=== PATIENT | male | born 2005 | race Two or more races ===

== ENCOUNTER 2024-03-18 23:31 | Emergency (ER) | payer MEDICAID ==
[~2024-03-18] VITALS: Ht 195.6 cm; Wt 151.3 kg
[2024-03-18] MEDS: ALPRAZolam 0.5 MG TAB PO ONE (23:45)
--- NOTE | 2024-03-18 23:48 | ED.PDOC ---
HPI Comments 18-year-old male who came to ER for palpitations. Patient denies any medical problems. He admits to have been smoking marijuana earlier today, and shortly afterwards he started having palpitations. Denies any acute chest pains or shortness of breath. Patient appears very anxious at this time of care. Patient was tachycardic at arrival. Chief Complaint: Palpitations Time Seen by MD: 23:47 Primary Care Provider: ASHLEY Brown Notes: Nurses Notes Allergies: Coded Allergies: NO KNOWN ALLERGIES (Unverified , 08/16/12) Information Source: Patient Mode of Arrival: Ambulatory Severity: Moderate Timing: Minutes Duration: Since onset History of: None Associated Signs and Symptoms: Palpitations Past Medical History PAST MEDICAL HISTORY: Denies Surgical History: Denies all surgeries Family History Family History: Reviewed,noncontributory to illness Social History Smoker: Non-Smoker Alcohol: Denies ETOH Use Drugs: Marijuana Lives In: Home Constitutional: denies: chills, diaphoresis, fatigue, fever, malaise, sweats, weakness, others EENTM: denies: blurred vision, double vision, ear bleeding, ear discharge, ear drainage, ear pain, ear ringing, eye pain, eye redness, hearing loss, mouth pain, mouth swelling, nasal discharge, nose bleeding, nose congestion, nose pain, photophobia, tearing, throat pain, throat swelling, voice changes, others Respiratory: denies: cough, hemoptysis, orthopnea, SOB at rest, shortness of breath, SOB with excertion, stridor, wheezing, others Cardiovascular: reports: dizzy spells, palpitations; denies: chest pain, diaphoresis, Dyspnea on exertion, edema, irregular heart beat, left arm pain, lightheadedness, PND, syncope, others Gastrointestinal: denies: abdomen distended, abdominal pain, blood streaked bowels, constipated, diarrhea, dysphagia, difficulty swallowing, hematemesis, melena, nausea, poor appetite, poor fluid intake, rectal bleeding, rectal pain, vomiting, others Genitourinary: denies: burning, dysuria, flank pain, frequency, hematuria, incontinence, penile discharge, penile sore, pain, testicle pain, testicle swelling, urgency, others Neurological: denies: dizziness, fainting, headache, left sided numbness, left sided weakness, numbness, paresthesia, pre-existing deficit, right sided numbness, right sided weakness, seizure, speech problems, tingling, tremors, weakness, others Musculoskeletal: denies: back pain, gout, joint pain, joint swelling, muscle pain, muscle stiffness, neck pain, others Integumetry: denies: bruises, change in color, change in hair/nails, dryness, laceration, lesions, lumps, rash, wounds, others Allergic/Immunocompromised: denies: Difficulty Healing, Frequent Infections, Hives, Itching, others Hematologic/Lymphatic: denies: anemia, blood clots, easy bleeding, easy bruising, swollen glands, others Endocrine: denies: excessive hunger, excessive sweating, excessive thirst, excessive urination, flushing, intolerance to cold, intolerance to heat, unexplained weight gain, unexplained weight loss, others Psychiatric: denies: anxiety, bipolar disorder, depression, hopeless, panic disorder, schizophrenia, sleepless, suicidal, others Physical Exam General Appearance: Mild Distress (Patient was anxious at time of exam. Patient appears to be high on cannabis.), Normal HEENT: Pharynx Normal, TMs Normal, Other (Mild bilateral scleral injection) Neck: Full Range of Motion, Non-Tender, Normal, Normal Inspection Respiratory: Chest Non-Tender, Lungs Clear, No Accessory Muscle Use, No Respiratory Distress, Normal Breath Sounds Cardiovascular: No Edema, No JVD, No Murmur, No Gallop, Normal Peripheral Pulses, Regular Rate/Rhythm Breast Exam: Deferred Gastrointestinal: No Organomegaly, Non Tender, No Pulsatile Mass, Normal Bowel Sounds, Soft Genitalia: Deferred Pelvic: Deferred Rectal: Deferred Extremities: No calf tenderness, Normal capillary refill, Normal inspection, Normal range of motion, Non-tender, No pedal edema Musculoskeletal : Apperance: Normal Neurologic: Alert, No Motor Deficits, Normal Affect, Normal Mood, No Sensory Deficits Cerebellar Function: Normal Reflexes: Normal Skin: Dry, Normal Color, Warm Lymphatic: No Adenopathy EKG EKG : Pulse Rate (adult): 127 Cardiac Rhythm: ST Was a procedure done? Was a procedure done?: No CP Differential Dx Differential Diagnosis: Angina, Anxiety / Panic Attack, Hyperventilation, Sinus Tachycardia, Other (Cannabis intoxication) Differential Diagnosis: HTN Essential Differential Diagnosis: Angina, Chest Wall Pain, Costochondritis, Esophageal reflux/spasm, Gastritis, Myocardial Infarction X-Ray, Labs, Meds, VS Vital Signs Date Time Temp Pulse Resp B/P (MAP) Pulse Ox O2 Delivery O2 Flow Rate FiO2 03/18/24 23:48 127 03/18/24 23:39 99.0 128 20 150/72 (98) 98 Lab Test 03/18/24 23:45 Range/Units Troponin I High Sensitivity < 3 L </=54 ng/L X-Ray, Labs, Meds, VS Comment All studies performed the ED were evaluated by me personally. Patient's EKG displayed sinus tachycardia with a rate of 128. VA interval of 165 and QT interval 289. Otherwise normal EKG. Patient had good response status post Xanax dispensing. Advised patient that he may was utilize different strains of cannabis if he continues to smoke as the current selection is causing him anxiety. Time of 1ST Reevaluation: 00:56 Reevaluation 1ST: Improved Consultation: PCP Patient Education/Counseling: Diagnosis, Treatment Family Education/Counseling: Diagnosis, Treatment, No Family Present Departure 1 Departure Time of Disposition: 00:56 Impression: Primary Impression: Palpitations Additional Impression: Anxiety Disposition: 01 HOME / SELF CARE / HOMELESS Condition: Stable Additional Instructions: Advised patient stop cannabis use and increase healthy food and good hydration. Discharged With: Self, Friend Critical Care Note Critical Care Time?: No Critical care comment: Palpitations Stability Stability form required: No Heart Score Heart Score: Heart Score Response (Comments) Value History Slightly Suspicious 0 EKG Repolarization Disturb 1 Age <45 0 Risk Factors No known risk factors 0 Troponin Normal limit 0 Total 1 I personally scribed for BELEN HAMLIN PAC ([email or web address]) on 03/18/24 at 23:48. Electronically submitted by Leobardo Thompson ([email or web address]). BELEN HAMLIN PAC Mar 18, 2024 23:48
[2024-03-19 01:09] VITALS: BP 130/58; PULSE 79; RESP 19; TEMP 98.6; O2SAT 96
--- NOTE | 2024-03-19 06:40 | ECG ---
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
== END 2024-03-19 01:12 | disposition home or self-care (01) ==
LOC: ER 23:31
DX: R00.2 Palpitations (principal); F41.9 Anxiety disorder, unspecified; F12.10 Cannabis abuse, uncomplicated
CPT/HCPCS: 36415; 84484; 93005